=== PATIENT | female | born 1950 | race African-American/Black ===

== ENCOUNTER 2018-01-10 08:53 | Emergency (ER) | payer MEDICAID ==
[~2018-01-10] VITALS: Ht 167.6 cm; Wt 83.9 kg
[2018-01-10 08:27] VITALS: BP 130/88
[~2018-01-10 08:53] MED LIST: AMLODIPINE BES2.5 MG ORAL; Acetaminophen 500mg (ES) tab ORAL ONE; GABAPENTIN300 MG ORAL; HUMALOG100 UNIT/4 SUBQ; HYDROCHLOROTHIA25 MG ORAL; IRON PO; METFORMIN HCL1000 M1 ORAL
[2018-01-10] MEDS ORDERED: Acetaminophen 500mg (ES) tab ORAL ONE (08:59)
[2018-01-10] MEDS ORDERED: IBUPROFEN400 MG ORAL (09:19)
[2018-01-10 09:28] VITALS: BP 123/74
--- NOTE | 2018-01-10 15:04 | Emergency Room Report ---
History of Present Illness General Chief Complaint: Pain Source: Patient Present Illness HPI Patient is a 59-year-old female who presented after bilateral foot pain. The patient presented having bilateral pain to the plantar areas of both feet which had been present for approximately 3 days. Patient gradual onset of symptoms. Patient states she has prior history of chronic pain. She denies any fever. She denies any numbness to both feet. Patient denies recent trauma. Allergies: Coded Allergies: No Known Allergies (Verified , 12/30/07) Patient History Past Medical History: see triage record Reviewed Nursing Documentation: PMH: Agreed; PSxH: Agreed Nursing Documentation-PMH Past Medical History: No History, Except For Hx Diabetes: Yes Review of Systems All Other Systems: negative except mentioned in HPI Physical Exam Vital Signs Date Time Temp Pulse Resp B/P (MAP) Pulse Ox O2 Delivery O2 Flow Rate FiO2 01/10/18 08:27 98.4 88 16 130/88 98 Room Air 98.4 General Appearance: well appearing, no apparent distress, alert, GCS 15 Head: normocephalic, atraumatic ENT: hearing grossly normal, normal voice Neck: full range of motion, supple Respiratory: no respiratory distress, speaking full sentences Cardiovascular #1: edema - trace Gastrointestinal: normal inspection, non tender, soft Musculoskeletal: no calf tenderness Neurologic: normal gait Psychiatric: mood/affect normal Skin: no rash Medical Decision Making Diagnostic Impression: Primary Impression: Foot pain, bilateral ER Course The patient presented for bilateral foot pain. Differential diagnosis included was not limited to neuropathy, arthritis, vascular occlusion, pedal edema, cellulitis among others. Patient has a benign exam and does not appear to require any further imaging or laboratory testing at this time. Patient was given ibuprofen for pain. Patient appears to have some slight pedal edema which is related patient's medication noncompliance. Patient recently been prescribed hydrochlorothiazide but had not yet been taking her medications. The patient is advised to follow up with primary care doctor in 1-2 days. Patient is advised to return if any worsening condition or if any changes in status that are concerning. This report is dictated with [employer] autotransfusionist software which may occasionally lead to discrepancies related to use of this software. Last Vital Signs Date Time Temp Pulse Resp B/P (MAP) Pulse Ox O2 Delivery O2 Flow Rate FiO2 01/10/18 09:28 97.6 83 19 123/74 96 Room Air 98.4 Disposition: HOME, SELF-CARE Condition: Stable Scripts Ibuprofen* (MOTRIN*) 400 Mg Tablet 400 MG ORAL Q8H, #30 TAB 0 Refills Prov: Solomon Ramires 01/10/18 Referrals: [facility],REFERRING (PCP) Patient Instructions: Arthritis Solomon Ramires January 10, 2018 15:04
== END 2018-01-10 09:28 | disposition home or self-care (01) ==
LOC: EDBD 08:53 → EMR 09:19
DX: M79.672 Pain in left foot (principal); M79.671 Pain in right foot; E11.9 Type 2 diabetes mellitus without complications
CPT/HCPCS: 99283

== ENCOUNTER 2018-12-01 09:10 | Emergency (ER) | payer MEDICAID ==
[~2018-12-01] VITALS: Ht 165.1 cm; Wt 77.1 kg
[~2018-12-01 09:10] MED LIST changes: -Acetaminophen 500mg (ES) tab ORAL ONE; +IBUPROFEN400 MG ORAL; +LANTUS SOL100 UNIT/1 SUBQ
[2018-12-01 09:37] VITALS: BP 151/91
--- NOTE | 2018-12-01 09:38 | NUR ---
ED Nurse Note:pt. was BIBA with c/o right lower abd pain since yesterday and BS 356, she is A/Ox4 ambulatory, placed on site monitor VSS, blood sentt to labs
[2018-12-01 09:53] LABS: BASOPHILS % (AUTO) 1.8 % (0.0-2.0); EOSINOPHILS % (AUTO) 1.9 % (0.0-3.0); HEMATOCRIT 47.2 % (37.0-47.0); HEMOGLOBIN 14.7 G/DL (12.0-16.0); LYMPHOCYTES % (AUTO) 37.7 % (20.0-45.0); MEAN CORPUSCULAR VOLUME 82 FL (80-99); MONOCYTES % (AUTO) 6.6 % (1.0-10.0); PLATELET COUNT 220 K/UL (150-450); RED BLOOD COUNT 5.75 M/UL (4.20-5.40); RED CELL DISTRIBUTION WIDTH 14.7 % (11.6-14.8); WHITE BLOOD COUNT 3.9 K/UL (4.8-10.8)
[2018-12-01 09:59] LABS: ANION GAP 11 mmol/L (5-15); BLOOD UREA NITROGEN 12 mg/dL (7-18); CALCIUM 9.4 MG/DL (8.5-10.1); CARBON DIOXIDE 28 MMOL/L (21-32); CHLORIDE 103 MMOL/L (98-107); CREATININE 0.9 MG/DL (0.55-1.30); POTASSIUM 3.7 MMOL/L (3.5-5.1); SODIUM 141 MMOL/L (136-145)
[2018-12-01 10:03] LABS: ALANINE AMINOTRANSFERASE 29 U/L (12-78); ALBUMIN 3.6 G/DL (3.4-5.0); ALBUMIN/GLOBULIN RATIO 0.9 (1.0-2.7); ALKALINE PHOSPHATASE 77 U/L (46-116); ASPARTATE AMINO TRANSFERASE 24 U/L (15-37); BILIRUBIN,TOTAL 0.5 MG/DL (0.2-1.0)
[2018-12-01 10:21] LABS: APPEARANCE,URINE CLEAR; BILIRUBIN, URINE NEGATIVE (NEGATIVE); COLOR,URINE PALE YELLOW; GLUCOSE, URINE (UA) 4+ (NEGATIVE); KETONES,URINE 3+ (NEGATIVE); LEUKOCYTE ESTERASE ,URINE NEGATIVE (NEGATIVE); NITRITE,URINE NEGATIVE (NEGATIVE); PH,URINE 6 (4.5-8.0); PROTEIN,URINE NEGATIVE (NEGATIVE); UROBILINOGEN,URINE NORMAL MG/DL (0.0-1.0)
[2018-12-01 10:52] VITALS: BP 158/88
[2018-12-01 10:53] VITALS: BP 158/88
--- NOTE | 2018-12-01 11:09 | NUR ---
ER DISCHARGE NOTE: Patient is cleared to be discharged per ERMD, pt is aox4, on room air, with stable vital signs. pt was given dc and prescription instructions, pt was able to verbalize understanding, pt id band and iv site removed without complications. pt is able to ambulate with steady gait. pt took all belongings.
--- NOTE | 2018-12-01 12:07 | Emergency Room Report ---
History of Present Illness General Chief Complaint: Abdominal Pain Source: Patient Present Illness HPI Patient presents with complaints of some nonspecific abdominal discomfort initially had reported left lower quadrant discomfort however on further questioning patient essentially reports that she has not taking her insulin Feels that her glucose is elevated Denies any vomiting Denies any diarrhea Denies any flank pain denies any dysuria Denies any recent surgeries denies any fevers or chills Allergies: Coded Allergies: No Known Allergies (Verified , 12/30/07) Patient History Past Medical History: see triage record Pertinent Family History: none Reviewed Nursing Documentation: PMH: Agreed; PSxH: Agreed Nursing Documentation-PMH Hx Hypertension: Yes Hx Diabetes: Yes Review of Systems All Other Systems: negative except mentioned in HPI Physical Exam Vital Signs Date Time Temp Pulse Resp B/P (MAP) Pulse Ox O2 Delivery O2 Flow Rate FiO2 12/01/18 09:02 97.3 89 20 151/91 100 Room Air Sp02 EP Interpretation: reviewed, normal General Appearance: well appearing, no apparent distress Head: normocephalic, atraumatic Eyes: bilateral eye PERRL, bilateral eye EOMI ENT: hearing grossly normal, normal pharynx, TMs + canals normal, uvula midline Neck: full range of motion, supple, no meningismus, no bony tend Respiratory: lungs clear, normal breath sounds, no rhonchi, no respiratory distress, no retraction, no accessory muscle use Cardiovascular #1: normal peripheral pulses, regular rate, rhythm, no edema, no gallop, no JVD, no murmur Gastrointestinal: normal bowel sounds, non tender, soft, no mass, no organomegaly, non-distended, no guarding, no hernia, no pulsatile mass, no rebound Genitourinary: no CVA tenderness Musculoskeletal: normal inspection Neurologic: oriented x3, responsive, process safety management engineer III-XII nml as tested, motor strength/ tone normal, sensory intact Psychiatric: mood/affect normal Skin: normal color, no rash, warm/dry, palpation normal Lymphatic: normal inspection, no adenopathy Medical Decision Making Diagnostic Impression: Primary Impression: hyperglycemia ER Course With the history exam and presentation, multiple differentials considered, including but not limited to appendicitis, gastritis, cholecystitis, diverticulitis Patient's glucose level was elevated on the chemistry Patient had been provided IV hydration on repeat exam resting comfortably without any acute distress blood work does not reveal any obvious acidotic findings patient's repeat Accu-Chek is below 300 And the patient remains comfortable and stable for close outpatient follow-up Labs Test 12/01/18 09:20 12/01/18 09:55 White Blood Count 3.9 K/UL (4.8-10.8) Red Blood Count 5.75 M/UL (4.20-5.40) Hemoglobin 14.7 G/DL (12.0-16.0) Hematocrit 47.2 % (37.0-47.0) Mean Corpuscular Volume 82 FL (80-99) Mean Corpuscular Hemoglobin 25.6 PG (27.0-31.0) Mean Corpuscular Hemoglobin Concent 31.2 G/DL (32.0-36.0) Red Cell Distribution Width 14.7 % (11.6-14.8) Platelet Count 220 K/UL (150-450) Mean Platelet Volume 7.2 FL (6.5-10.1) Neutrophils (%) (Auto) 52.0 % (45.0-75.0) Lymphocytes (%) (Auto) 37.7 % (20.0-45.0) Monocytes (%) (Auto) 6.6 % (1.0-10.0) Eosinophils (%) (Auto) 1.9 % (0.0-3.0) Basophils (%) (Auto) 1.8 % (0.0-2.0) Sodium Level 141 MMOL/L (136-145) Potassium Level 3.7 MMOL/L (3.5-5.1) Chloride Level 103 MMOL/L (98-107) Carbon Dioxide Level 28 MMOL/L (21-32) Anion Gap 11 mmol/L (5-15) Blood Urea Nitrogen 12 mg/dL (7-18) Creatinine 0.9 MG/DL (0.55-1.30) Estimat Glomerular Filtration Rate > 60 mL/min (>60) Glucose Level 342 MG/DL (74-106) Calcium Level 9.4 MG/DL (8.5-10.1) Total Bilirubin 0.5 MG/DL (0.2-1.0) Aspartate Amino Transf (AST/SGOT) 24 U/L (15-37) Alanine Aminotransferase (ALT/SGPT) 29 U/L (12-78) Alkaline Phosphatase 77 U/L (46-116) Total Protein 7.4 G/DL (6.4-8.2) Albumin 3.6 G/DL (3.4-5.0) Globulin 3.8 g/dL Albumin/Globulin Ratio 0.9 (1.0-2.7) Lipase 107 U/L (73-393) Urine Color Pale yellow Urine Appearance Clear Urine pH 6 (4.5-8.0) Urine Specific [place] 1.015 (1.005-1.035) Urine Protein Negative (NEGATIVE) Urine Glucose (UA) 4+ (NEGATIVE) Urine Ketones 3+ (NEGATIVE) Urine Blood Negative (NEGATIVE) Urine Nitrite Negative (NEGATIVE) Urine Bilirubin Negative (NEGATIVE) Urine Urobilinogen Normal MG/DL (0.0-1.0) Urine Leukocyte Esterase Negative (NEGATIVE) Urine Opiates Screen Negative (NEGATIVE) Urine Barbiturates Screen Negative (NEGATIVE) Phencyclidine (PCP) Screen Positive (NEGATIVE) Urine Amphetamines Screen Negative (NEGATIVE) Urine Benzodiazepines Screen Negative (NEGATIVE) Urine Cocaine Screen Negative (NEGATIVE) Urine Marijuana (THC) Screen Negative (NEGATIVE) Rhythm Strip Diag. Results EP Interpretation: yes Rate: 70 Rhythm: NSR, no PVC's, no ectopy Last Vital Signs Date Time Temp Pulse Resp B/P (MAP) Pulse Ox O2 Delivery O2 Flow Rate FiO2 12/01/18 10:53 97.3 61 17 158/88 100 Room Air Status: improved Disposition: HOME, SELF-CARE Condition: Improved Referrals: [facility],REFERRING (PCP) Missy Moreno [facility] Patient Instructions: Hyperglycemia, [id number], Abdominal Pain, Adult Additional Instructions: Patient is provided with the discharge instructions notified to follow up with primary doctor in the next 2-3 days otherwise return to the er with any worsening symptoms. Please note that this report is being documented using [employer] technology. This can lead to erroneous entry secondary to incorrect interpretation by the dictating instrument. Nate Lara DO Dec 01, 2018 12:07
== END 2018-12-01 11:09 | disposition home or self-care (01) ==
LOC: EDBD 09:10 → EMR 09:45
DX: E11.649 Type 2 diabetes mellitus with hypoglycemia without coma (principal); I10 Essential (primary) hypertension; Z91.14 Patient's other noncompliance with medication regimen
CPT/HCPCS: 36415; 80053; 80307; 81003; 82962; 83690; 85025; 96360; 99284

== ENCOUNTER 2020-06-19 13:54 | Inpatient (IN) | payer MEDICAID ==
[~2020-06-19] VITALS: Ht 167.6 cm; Wt 63.1 kg
[2020-06-19] MEDS ORDERED: LR 1000ml 1,000 ML IVLG ONE ×3 (14:00)
[2020-06-19] MEDS ORDERED: cefTRIAXone 1 GM in NS 55 ML IVPB ONE (14:00)
--- NOTE | 2020-06-19 14:15 | NUR ---
ED Nurse Note: pt brought in by ra 826 from home for generalized weakness since ealier today, BP 85/56 at triage. Pt is AOx4, calm and cooperative to care. Pt denies loss of consciousness nor dizziness nor weakness. Pt was hooked to potline monitor, breathing even and unlabored, afebrile on triage. Safety measures in placed will continue monitoring pt.
[2020-06-19 14:33] LABS: BASOPHILS % (AUTO) 3.3 % (0.0-2.0); EOSINOPHILS % (AUTO) 0.4 % (0.0-3.0); HEMATOCRIT 39.5 % (37.0-47.0); HEMOGLOBIN 13.1 G/DL (12.0-16.0); LYMPHOCYTES % (AUTO) 27.7 % (20.0-45.0); MEAN CORPUSCULAR VOLUME 78 FL (80-99); NEUTROPHILS % (AUTO) 60.6 % (45.0-75.0); PLATELET COUNT 189 K/UL (150-450); RED BLOOD COUNT 5.09 M/UL (4.20-5.40); RED CELL DISTRIBUTION WIDTH 13.3 % (11.6-14.8); WHITE BLOOD COUNT 4.7 K/UL (4.8-10.8)
[2020-06-19 15:00] VITALS: BP_SYST 150; BP_SYST 85; BP_DIAS 56; BP_DIAS 70
[2020-06-19 15:03] LABS: ALANINE AMINOTRANSFERASE 41 U/L (12-78); ALBUMIN 3.5 G/DL (3.4-5.0); ALKALINE PHOSPHATASE 83 U/L (46-116); ANION GAP 8 mmol/L (5-15); ASPARTATE AMINO TRANSFERASE 23 U/L (15-37); BILIRUBIN,TOTAL 0.4 MG/DL (0.2-1.0); BLOOD UREA NITROGEN 10 mg/dL (7-18); CARBON DIOXIDE 28 MMOL/L (21-32); CHLORIDE 98 MMOL/L (98-107); CREATINE KINASE 42 U/L (26-308); CREATININE 0.9 MG/DL (0.55-1.30); PHOSPHORUS 3.3 MG/DL (2.5-4.9); POTASSIUM 3.9 MMOL/L (3.5-5.1); SODIUM 134 MMOL/L (136-145)
--- NOTE | 2020-06-19 15:16 | Emergency Room Report ---
History of Present Illness General Chief Complaint: Generalized Weakness Source: Patient (Jaxon Herrera MD) Present Illness HPI 69-year-old female history of diabetes presents with generalized weakness x1 day no chest pain or shortness of breath no fever, but she does endorse a dry cough over the past 24 hours no known aggravating or alleviating factors severity is moderate, constant patient presents for evaluation and treatment (Jaxon Herrera MD) Allergies: Coded Allergies: No Known Allergies (Verified , 09/29/19) COVID-19 Screening Contact w/high risk pt: No Experienced COVID-19 symptoms?: No COVID-19 Testing performed PARTS CATALOGUER: No (Jaxon Herrera MD) Patient History Past Medical History: see triage record Last Menstrual Period: na Reviewed Nursing Documentation: PMH: Agreed; PSxH: Agreed (Jaxon Herrera MD) Nursing Documentation-PMH Past Medical History: No History, Except For Hx Hypertension: Yes Hx Diabetes: Yes (Jaxon Herrera MD) Review of Systems All Other Systems: negative except mentioned in HPI (Jaxon Herrera MD) Physical Exam Vital Signs Date Time Temp Pulse Resp B/P (MAP) Pulse Ox O2 Delivery O2 Flow Rate FiO2 06/19/20 13:55 99.0 116 18 85/56 (66) 100 Room Air Sp02 EP Interpretation: reviewed, normal General Appearance: alert, cachetic Head: normocephalic, atraumatic Eyes: bilateral eye PERRL, bilateral eye EOMI ENT: uvula midline, moist mucus membranes Neck: supple, thyroid normal, supple/symm/no masses Respiratory: lungs clear, no respiratory distress, no retraction, no accessory muscle use Cardiovascular #1: normal peripheral pulses, regular rate, rhythm, no edema, no gallop, no murmur Gastrointestinal: non tender, soft, no guarding, no rebound Musculoskeletal: normal inspection Neurologic: alert, oriented x3 Psychiatric: mood/affect normal Skin: no rash, warm/dry (Jaxon Herrera MD) Procedures Critical Care Time Critical Care Time Given the critical condition in which the patient arrived, the patient was immediately assessed by myself and the nurse, and cardiac monitoring initiated due to the potential for rapid decompensation of the patient's clinical condition. During the course of the patient's stay, I spent a considerable amount of time at the bedside performing serial re-evaluations of the patient's hemodynamic and clinical status because of the recognized potential threat to life or limb in this condition. I then had a chance to review not only all of the available current laboratory and radiographic studies obtained today, but I also reviewed old records available to me at the time. Additionally, any ancillary information available including jira administrator records were reviewed. Sequential vital signs were obtained. Critical Care time of 31 minutes was performed exclusive of billable procedures. (Jaxon Herrera MD) Medical Decision Making Diagnostic Impression: Primary Impression: Weakness Additional Impressions: Hypotension Qualified Codes: I95.9 - Hypotension, unspecified Hyperglycemia ER Course 69-year-old female presents with generalized weakness, hypotension, differential includes sepsis, urinary tract infection, pneumonia Patient's blood pressure improved with fluid resuscitation, patient given ceftriaxone for possible urinary tract infection versus pneumonia. Chest x-ray is negative Troponin negative Plan for admission for generalized weakness Laboratory Tests Test 06/19/20 14:07 White Blood Count 4.7 K/UL (4.8-10.8) L Red Blood Count 5.09 M/UL (4.20-5.40) Hemoglobin 13.1 G/DL (12.0-16.0) Hematocrit 39.5 % (37.0-47.0) Mean Corpuscular Volume 78 FL (80-99) L Mean Corpuscular Hemoglobin 25.7 PG (27.0-31.0) L Mean Corpuscular Hemoglobin Concent 33.0 G/DL (32.0-36.0) Red Cell Distribution Width 13.3 % (11.6-14.8) Platelet Count 189 K/UL (150-450) Mean Platelet Volume 7.6 FL (6.5-10.1) Neutrophils (%) (Auto) 60.6 % (45.0-75.0) Lymphocytes (%) (Auto) 27.7 % (20.0-45.0) Monocytes (%) (Auto) 8.0 % (1.0-10.0) Eosinophils (%) (Auto) 0.4 % (0.0-3.0) Basophils (%) (Auto) 3.3 % (0.0-2.0) H Prothrombin Time 11.1 SEC (9.30-11.50) Prothrombin Time INR 1.0 (0.9-1.1) Activated Partial Thromboplast Time 26 SEC (23-33) Sodium Level 134 MMOL/L (136-145) L Potassium Level 3.9 MMOL/L (3.5-5.1) Chloride Level 98 MMOL/L (98-107) Carbon Dioxide Level 28 MMOL/L (21-32) Anion Gap 8 mmol/L (5-15) Blood Urea Nitrogen 10 mg/dL (7-18) Creatinine 0.9 MG/DL (0.55-1.30) Estimated Glomerular Filtration Rate > 60 mL/min (>60) Glucose Level 490 MG/DL (74-106) H Lactic Acid Level 1.30 mmol/L (0.4-2.0) Calcium Level 9.0 MG/DL (8.5-10.1) Phosphorus Level 3.3 MG/DL (2.5-4.9) Magnesium Level 1.6 MG/DL (1.8-2.4) L Total Bilirubin 0.4 MG/DL (0.2-1.0) Aspartate Amino Transferase (AST) 23 U/L (15-37) Alanine Aminotransferase (ALT) 41 U/L (12-78) Alkaline Phosphatase 83 U/L (46-116) Total Creatine Kinase 42 U/L (26-308) Troponin I 0.001 ng/mL (0.000-0.056) Pro-B-Type Natriuretic Peptide 37 pg/mL (0-125) Total Protein 6.9 G/DL (6.4-8.2) Albumin 3.5 G/DL (3.4-5.0) Globulin 3.4 g/dL Albumin/Globulin Ratio 1.0 (1.0-2.7) Lipase 271 U/L (73-393) Microbiology Date/Time Source Procedure Growth Status 06/19/20 14:07 Nasopharynx SARS-CoV-2 RdRp Gene Assay - Final Complete (Jaxon Herrera MD) ER Course Please see above note. Patient's blood pressure improved after boluses of fluids. Blood sugar is elevated by the lab. Accu-Chek ordered after boluses. Accu-Chek 278 after boluses. Patient tolerating oral intake. Ambulatory. Patient improved but admitted to telemetry. (Evin Winchester MD) EKG Diagnostic Results Troponin ordered: Yes When was troponin ordered?: Jun 19, 2020 - 1358 EKG Time: 14:45 EP Interpretation: NSR, rate 81, QTc 436, no acute ST elevations, normal axis (Jaxon Herrera MD) Rhythm Strip Diag. Results Rhythm Strip Time: 14:48 EP Interpretation: yes Rate: 84 Rhythm: NSR, no PVC's, no ectopy (Jaxon Herrera MD) EP Interpretation: yes Rhythm: NSR, no PVC's, no ectopy (Evin Winchester MD) Chest X-Ray Diagnostic Results Chest X-Ray Diagnostic Results : Chest X-Ray Ordered: Yes # of Views/Limited/Complete: 1 View Indication: Chest Pain EP Interpretation: Yes Interpretation: no consolidation, no effusion, no pneumothorax, no acute c ardiopulmonary disease Impression: No acute disease Electronically Signed by: Jaxon Herrera MD (Jaxon Herrera MD) Chest X-Ray Diagnostic Results : Chest X-Ray Ordered: Yes # of Views/Limited/Complete: 1 View Indication: Other EP Interpretation: Yes Interpretation: no consolidation, no effusion, no pneumothorax Impression: No acute disease Electronically Signed by: Electronically signed by Evin Winchester MD (Evin Winchester MD) Last Vital Signs Date Time Temp Pulse Resp B/P (MAP) Pulse Ox O2 Delivery O2 Flow Rate FiO2 06/19/20 13:55 99.0 116 18 85/56 (66) 100 Room Air (Jaxon Herrera MD) Last Vital Signs Date Time Temp Pulse Resp B/P (MAP) Pulse Ox O2 Delivery O2 Flow Rate FiO2 06/20/20 04:00 75 06/20/20 03:51 98.1 17 126/67 (86) 97 06/19/20 21:40 Room Air Status: improved (Evin Winchester MD) Disposition: ADMITTED INPATIENT Condition: Serious Jaxon Herrera MD Jun 19, 2020 15:16 Evin Winchester MD Jun 19, 2020 15:47
[2020-06-19 15:36] LABS: APPEARANCE,URINE CLEAR; BILIRUBIN, URINE NEGATIVE (NEGATIVE); COLOR,URINE PALE YELLOW; GLUCOSE, URINE (UA) 4+ (NEGATIVE); KETONES,URINE 1+ (NEGATIVE); LEUKOCYTE ESTERASE ,URINE NEGATIVE (NEGATIVE); NITRITE,URINE NEGATIVE (NEGATIVE); PH,URINE 6.5 (4.5-8.0); PROTEIN,URINE NEGATIVE (NEGATIVE); UROBILINOGEN,URINE NORMAL MG/DL (0.0-1.0)
--- NOTE | 2020-06-19 15:43 | NUR ---
ED Nurse Note: ermd aware; offered sandwich to pt
--- NOTE | 2020-06-19 15:43 | NUR ---
ED Nurse Note: Latest BP: 152/70
--- NOTE | 2020-06-19 16:32 | Diagnostic Imaging Report ---
Indication: Shortness of breath Technique: One view of the chest Comparison: 03/11/2010 Findings: Lungs and pleural spaces are clear. Heart size is normal. Better inspiration currently Impression: No acute process
[2020-06-19 17:13] VITALS: BP 126/71
--- NOTE | 2020-06-19 19:13 | NUR ---
ED Nurse Note: hand-off given to CELE Lemon for continuity of care.
[2020-06-19 19:30] VITALS: BP 132/70
[2020-06-19] MEDS ORDERED: Zolpidem 5mg tab ORAL PRN (20:45)
[2020-06-19] MEDS ORDERED: Milk of Magnesia 30ml Ud ORAL PRN (20:45)
--- NOTE | 2020-06-19 21:00 | NUR ---
ED Nurse Note: Pt resting in bed with eyesv open, ptv denies pain at this time, fluids infusing per order, no signs of distress. Pt given sandwhich and juice. will continue to monitor
[2020-06-19 21:30] VITALS: BP 142/78
--- NOTE | 2020-06-19 21:40 | NUR ---
TRANSFER TO FLOOR: Patient transferred to as ordered, per Dr Carver. Report given to CELE Thompson . Belongings and medications given to . Family and or S/O informed of transfer.
--- NOTE | 2020-06-19 21:45 | NUR ---
NURSE NOTES: Patient received from Xochilt OAKLEY. Brought to floor via [facility]. Patient was able to ambulate from gurney to bed. Placed on telemetry monitor and yellow gown. Patient is alert and oriented x4 Belongings list checked. Vital signs stable upon arrival. Bed in lowest position and locked. IV site patent and intact on Left AC 20G SL. Received orders from Attending MD verified and carried out. Call light and bedside table within reach. WIll continue plan of care.
[2020-06-19] MEDS: Aspirin Baby 81mg ORAL SCH (22:06)
[2020-06-19] MEDS: NovoLOG Insulin Flexpen SUBQ SCH (22:09)
--- NOTE | 2020-06-19 22:45 | NUR ---
NURSE NOTES: Patient complained of 7/10 stomach pain and states that she takeds Tylenol #3. Called MD and gave order verified and carried out.
[2020-06-19] MEDS: Tylenol #3 tab (300mg/30mg) ORAL PRN (22:53)
[2020-06-20] VITALS: BP 150/81
[2020-06-20] MEDS: Tylenol #3 tab (300mg/30mg) ORAL PRN ×4 (03:13→23:34)
[2020-06-20 03:51] VITALS: BP 126/67
[2020-06-20] MEDS: NovoLOG Insulin Flexpen SUBQ SCH ×5 (05:34→20:50)
[2020-06-20 05:45] LABS: ANION GAP 5 mmol/L (5-15); BLOOD UREA NITROGEN 10 mg/dL (7-18); CALCIUM 8.4 MG/DL (8.5-10.1); CARBON DIOXIDE 29 MMOL/L (21-32); CHLORIDE 104 MMOL/L (98-107); CHOLESTEROL 162 MG/DL (< 200); CREATININE 0.8 MG/DL (0.55-1.30); HDL CHOLESTEROL 47 MG/DL (40-60); POTASSIUM 3.5 MMOL/L (3.5-5.1); SODIUM 138 MMOL/L (136-145); TRIGLYCERIDES 56 MG/DL (30-150)
--- NOTE | 2020-06-20 07:27 | NUR ---
NURSE HAND-OFF REPORT: Important Events on Shift:[Admission] Patient Status: [Stable] Diet: [CCHO Med] Pending Orders: [] Pending Results/Labs:[] Pending MD notification:[] Latest Vital Signs: Temperature 98.1 , Pulse 75 , B/P 126 /67 , Respiratory Rate 17 , O2 SAT 97 , Room Air, O2 Flow Rate . Vital Sign Comment: [] EKG Rhythm: Sinus Rhythm Rhythm change?: N MD Notified?: - MD Response: Latest [place] Fall Score: 35 Fall Risk: Medium Risk Safety Measures: Call light Within Reach, Bed Alarm Zone 1, Side Rails Side Rails x3, Bed position Low and Locked. Fall Precautions: Yellow Socks Yellow Gown Door Sign Patient Fall Education Report given to [Carlee].
[2020-06-20 08:00] VITALS: BP 125/71
[2020-06-20] MEDS: Aspirin Baby 81mg ORAL SCH (09:25)
--- NOTE | 2020-06-20 10:20 | History & Physical ---
History and Physical History & Physicial HP dictated # [id number] Xavi Carver MD Jun 20, 2020 10:20
[2020-06-20 12:00] VITALS: BP 127/74
--- NOTE | 2020-06-20 12:00 | NUR ---
NURSE NOTES: notified doctor Wen pt stated pt uses PCP at home. Doctor ordered drug urine test. waiting for orders.
--- NOTE | 2020-06-20 12:15 | History and Physical Report ---
DATE OF ADMISSION: 06/19/2020 CHIEF COMPLAINT: Generalized weakness. HISTORY OF PRESENT ILLNESS: This is a 69-year-old female with history of diabetes. She has been feeling weak for a week or so. Apparently, she had also dry cough reported to the ER, which she denies it now. In the emergency room, she was found to have hypotension, blood pressure was 85/56. She was afebrile. There was concern that the patient may be septic. Her blood sugar was also elevated and she was admitted for further care. PAST MEDICAL HISTORY: The patient has a history of diabetes and hypertension. MEDICATIONS: Reviewed in EMR. SOCIAL HISTORY: No history of smoking or alcohol abuse. The patient lives at home. ALLERGIES: No known drug allergies. REVIEW OF SYSTEMS: Noncontributory except above. PHYSICAL EXAMINATION: GENERAL: The patient is an elderly female, in no acute distress. VITAL SIGNS: Blood pressure 125/71, pulse 82, temperature 96.8, respirations 18. HEENT: [place] conjunctivae. Anicteric sclerae. NECK: Supple. LUNGS: Clear to auscultation. HEART: S1, S2 without murmurs or rubs. ABDOMEN: Soft, nontender. EXTREMITIES: No cyanosis or edema. LABORATORY FINDINGS: The CBC shows WBC of 4700, hematocrit 39.5, hemoglobin 13.1, and platelets 189,000. Chemistry panel shows serum sodium 138, potassium 3.5, chloride 104, carbon dioxide 29, BUN 10, creatinine 0.8. Blood sugar is 313. LDL is 109, HDL is 47. UA shows no protein, 4+ glucose, 1+ ketones. ASSESSMENT: This is a 69-year-old female who is admitted with weakness and hypotension. There was a concern about sepsis, but so far there is no source of infection. She had elevated blood sugar and she very likely had volume depletion as a result of uncontrolled diabetes. PLAN: The patient will be given IV fluids. She was started on empiric ceftriaxone. She will be seen by endocrine specification consultant, Dr. Puga. Labs will be followed and further adjustment will be made in the patient's regimen. Xavi Carver M.D. DR: MARGARET JOB#: [id number] CC:
[2020-06-20] MEDS: cefTRIAXone 1 GM in D5W 55 ML IVPB SCH (12:28)
--- NOTE | 2020-06-20 14:45 | NUR ---
PT Note PT david completed, treatment initiated. Patient is cooperative; has muscle weakness and decreased postural stability, making her at a risk for falls. Patient needs physical therapy to increase her muscle strength and balance to improve her safety in mobility and gait. Addendum: 06/20/20 at 1446 by MIGEL BATISTA PT Amended: Links added.
[2020-06-20 16:00] VITALS: BP 130/76
--- NOTE | 2020-06-20 16:21 | NUR ---
NURSE NOTES: pt in bed awake AOx3-4. Both Iv's intact and patent. Pt on pvc monitor no signs of cardiac or respiratory distress. Bed locked and in lowest position, call light within reach. Pt able to walk with assist to the restroom. Will continuer to monitor pt.
--- NOTE | 2020-06-20 16:30 | Consultation ---
DATE OF CONSULTATION: 06/20/2020 ENDOCRINOLOGY CONSULTATION CONSULTING PHYSICIAN: Alan Puga MD. REFERRING PHYSICIAN: Xavi Carver MD. REASON FOR CONSULTATION: Management of uncontrolled diabetes. HISTORY OF PRESENT ILLNESS: The patient is a 69-year-old female, very pleasant with history of diabetes on combination of insulin and Lantus as an outpatient and presented to the hospital with hypotension, blood pressure was 85/56 and a concern was the patient might be septic. Also, the glucose was elevated. PAST MEDICAL HISTORY: 1. Diabetes. 2. Hypertension. MEDICATIONS: Reviewed and reconciled. SOCIAL HISTORY: No smoking, alcohol or drug use. She lives at home. ALLERGIES TO MEDICATIONS: None. FAMILY HISTORY: Noncontributory. REVIEW OF SYSTEMS: A 12-point review of systems was performed, pertinent positives and negatives mentioned in the present illness. LABORATORY VALUES: Hemoglobin A1c of 13.5. Lactic acid is normal. Sodium 138, potassium 3.5, chloride 104, bicarb 29, BUN 10, creatinine 0.8. TSH of 0.7. LDL of 109. PHYSICAL EXAMINATION: GENERAL: She is awake and alert. VITAL SIGNS: Blood pressure is 125/71, heart rate 82, respiratory rate 18, temperature 96.8. HEENT: Pupils are equal and reactive to light. Sclerae are anicteric. NECK: No JVD. No thyromegaly or bruits. LUNGS: Clear. HEART: Regular rate and rhythm. ABDOMEN: Positive bowel sounds. Soft. EXTREMITIES: No clubbing, cyanosis or edema. DIAGNOSES: 1. Diabetes, out of control. 2. Hypotension. PLAN: 1. Start Levemir 24 units daily, first dose now. 2. Start NovoLog 8 units before each meal and dinner. 3. NovoLog sliding scale before meals and at bedtime is in order. 4. Hypoglycemia protocol is in order. 5. Start metformin 500 mg t.i.d. 6. Further adjustment according to the blood glucose values. Thank you, Dr. Carver, for the courtesy of this consultation. Alan Puga M.D. : CELE/HALIE JOB#: [id number] CC: MARIA ELENA
[2020-06-20] MEDS: metFORMIN 500mg tab ORAL SCH (16:57)
[2020-06-20] MEDS: Levemir Flexpen SUBQ SCH (16:59)
--- NOTE | 2020-06-20 19:29 | NUR ---
NURSE HAND-OFF REPORT: Important Events on Shift:pt reported pain in the abdomen mg and Ca are low reported to Dr. Carver, he ordered labs and 2 bags of mg Patient Status: full Diet: CCHo Pending Orders: labs Pending Results/Labs: Pending MD notification: Latest Vital Signs: Temperature 97.0 , Pulse 80 , B/P 130 /76 , Respiratory Rate 18 , O2 SAT 97 , Room Air, O2 Flow Rate . Vital Sign Comment: EKG Rhythm: Atrial Fibrillation Rhythm change?: N MD Notified?: - MD Response: Latest Dunne Fall Score: 35 Fall Risk: Medium Risk Safety Measures: Call light Within Reach, Bed Alarm Zone 2, Side Rails Side Rails x2, Bed position Low and Locked. Fall Precautions: y Yellow Socks y Yellow Gown y Patient Fall Education y Report given to Omaira/RN.
--- NOTE | 2020-06-20 19:35 | NUR ---
NURSE NOTES: Received report from CELE Bejarano. pt in bed awake, alert/oriented 4, able to make needs known. No resp distress noted. cardiac monitor in place. Iv on left forearm 22g infusing NS at 75cc/hr no s/s infiltration noted. Bed in low position & locked. Bed rails up x3. Bed alarm on, call light with in reach. Explained to pt to us call light when getting in & out of bed.
--- NOTE | 2020-06-20 19:59 | Cardiology Report ---
APPROVED REPORT EKG Measurement Heart [id number] <Conclusion> Normal sinus rhythm Normal ECG
[2020-06-20 20:00] VITALS: BP 132/77
[2020-06-21] VITALS: BP 128/65
[2020-06-21 04:00] VITALS: BP_SYST 122; BP_SYST 138; BP_DIAS 66; BP_DIAS 69
[2020-06-21] MEDS: metFORMIN 500mg tab ORAL SCH ×2 (06:33→11:55)
[2020-06-21] MEDS: Tylenol #3 tab (300mg/30mg) ORAL PRN ×2 (06:34→15:54)
[2020-06-21] MEDS: NovoLOG Insulin Flexpen SUBQ SCH ×4 (06:35→11:59)
--- NOTE | 2020-06-21 07:56 | NUR ---
NURSE NOTES: pt in bed eating breakfast. AOx3-4. on shelter monitor no signs of cardiac or respiratory distress. Bed is locked and in lowest position. Call light within reach. pt has no complains of pain at this time. Will continuer to monitor
[2020-06-21 08:00] VITALS: BP 133/69
[2020-06-21 08:29] LABS: ANION GAP 6 mmol/L (5-15); BLOOD UREA NITROGEN 10 mg/dL (7-18); CALCIUM 8.1 MG/DL (8.5-10.1); CARBON DIOXIDE 27 MMOL/L (21-32); CHLORIDE 106 MMOL/L (98-107); CREATININE 0.6 MG/DL (0.55-1.30); POTASSIUM 3.2 MMOL/L (3.5-5.1); SODIUM 139 MMOL/L (136-145)
[2020-06-21] MEDS: Levemir Flexpen SUBQ SCH (08:36)
[2020-06-21] MEDS: Aspirin Baby 81mg ORAL SCH (08:36)
[2020-06-21] MEDS ORDERED: NOVOLOG100 UNITS1 SUBQ (09:32)
[2020-06-21] MEDS ORDERED: LIPITOR10 MG ORAL (09:32)
[2020-06-21] MEDS ORDERED: LEVEMIR FL100 UNIT/1 SUBQ (09:32)
[2020-06-21] MEDS ORDERED: GLUCOPHAGE500 MG ORAL (09:32)
--- NOTE | 2020-06-21 11:47 | General Progress Note ---
Subjective Allergies: Coded Allergies: No Known Allergies (Verified , 09/29/19) All Systems: reviewed and negative except above Subjective events noted interval notes reviewed glucose values improved Item Value Date Time Bedside Blood Glucose 179 mg/dl H 06/21/20 0836 Bedside Blood Glucose 179 mg/dl H 06/21/20 0636 Bedside Blood Glucose 154 mg/dl H 06/20/20 2100 Bedside Blood Glucose 313 mg/dl H 06/20/20 1702 Bedside Blood Glucose 392 mg/dl H 06/20/20 1230 Bedside Blood Glucose 278 mg/dl H 06/20/20 0534 Objective Last 24 Hour Vital Signs Date Time Temp Pulse Resp B/P (MAP) Pulse Ox O2 Delivery O2 Flow Rate FiO2 06/21/20 04:00 98.1 80 20 122/66 (84) 97 06/21/20 04:00 73 06/21/20 00:00 74 06/21/20 00:00 98.0 88 20 128/65 (86) 96 06/20/20 21:00 Room Air 06/20/20 20:00 82 06/20/20 20:00 98.6 78 18 132/77 (95) 98 06/20/20 16:00 97.0 82 18 130/76 (94) 97 06/20/20 16:00 80 06/20/20 12:00 83 06/20/20 12:00 96.9 84 20 127/74 (91) 95 Intake and Output 06/20/20 06/21/20 19:00 07:00 Intake Total 480 ml 350 ml Balance 480 ml 350 ml Intake Oral 480 ml 350 ml # Voids 3 3 Laboratory Tests 06/20/20 12:50: Urine Opiates Screen PositiveH, Urine Barbiturates Screen Negative, Phencyclidine (PCP) Screen PositiveH, Urine Amphetamines Screen Negative, Urine Benzodiazepines Screen Negative, Urine Cocaine Screen Negative, Urine Marijuana (THC) Screen Negative 06/20/20 14:51: POC Whole Blood Glucose [Pending] 06/21/20 06:12: POC Whole Blood Glucose 179H 06/21/20 06:32: Sodium Level 139, Potassium Level 3.2L, Chloride Level 106, Carbon Dioxide Level 27, Anion Gap 6, Blood Urea Nitrogen 10, Creatinine 0.6, Estimat Glomerular Filtration Rate > 60, Glucose Level 172#H, Calcium Level 8.1L, Magnesium Level 1.6L 10/18/20 11:12: POC Whole Blood Glucose [Pending] Height (Feet): 5 Height (Inches): 6.00 Weight (Pounds): 100 General Appearance: no apparent distress Neck: normal alignment Cardiovascular: normal rate Respiratory/Chest: lungs clear Abdomen: normal bowel sounds Pelvis: normal external exam Objective Current Medications Medications (Trade) Dose Ordered Sig/Carson Route PRN Reason Start Time Stop Time Status Last Admin Dose Admin Acetaminophen/ Codeine Phosphate (Tylenol #3) 1 tab Q4H PRN ORAL Moderate Pain (Pain Scale 4-6) 06/19/20 22:45 06/26/20 22:44 06/21/20 06:34 Aspirin (ASA) 81 mg DAILY ORAL 06/19/20 20:45 08/03/20 20:44 06/21/20 08:36 Atorvastatin Calcium (Lipitor) 10 mg BEDTIME ORAL 06/20/20 21:00 09/18/20 20:59 06/20/20 20:47 Ceftriaxone Sodium 1 gm/ Dextrose 55 ml @ 110 mls/hr Q24H IVPB 06/20/20 13:00 06/27/20 12:59 06/20/20 12:28 Dextrose (Dextrose 50%) 25 ml Q30M PRN IV Hypoglycemia 06/20/20 14:30 09/18/20 14:29 Dextrose (Dextrose 50%) 50 ml Q30M PRN IV Hypoglycemia 06/20/20 14:30 09/18/20 14:29 Insulin Aspart (NovoLOG) BEFORE MEALS AND HS SUBQ 06/19/20 21:00 09/17/20 20:59 06/21/20 06:35 Insulin Aspart (NovoLOG) 8 units NOVOTIAC SUBQ 06/20/20 16:50 09/18/20 16:49 06/21/20 06:36 Insulin Detemir (Levemir) 24 units DAILY SUBQ 06/20/20 16:00 09/18/20 15:59 06/21/20 08:36 Magnesium Hydroxide (Mom) 30 ml HSPRN PRN ORAL Constipation 06/19/20 20:45 07/19/20 20:44 Magnesium Sulfate 100 ml @ 100 mls/hr Q1H IVPB 06/21/20 09:30 06/21/20 12:29 06/21/20 10:14 Metformin HCl (Glucophage) 500 mg TIAC ORAL 06/20/20 16:30 07/20/20 16:29 06/21/20 06:33 Sodium Chloride 1,000 ml @ 75 mls/hr [id number] IVLG 06/19/20 21:45 07/19/20 21:44 06/21/20 00:24 Zolpidem Tartrate (Ambien) 5 mg DAILYPRN PRN ORAL Insomnia 06/19/20 20:45 06/26/20 20:44 Assessment/Plan Problem List: (1) Hyperglycemia ICD Codes: R73.9 - Hyperglycemia, unspecified SNOMED: 68874679 (2) Weakness ICD Codes: R53.1 - Weakness SNOMED: 96925099 (3) Hypotension ICD Codes: I95.9 - Hypotension, unspecified SNOMED: 03710864 Qualifiers: Qualified Codes: I95.9 - Hypotension, unspecified (4) Foot pain, bilateral ICD Codes: M79.671 - Pain in right foot; M79.672 - Pain in left foot SNOMED: 10710419 Assessment/Plan: continue Levemir 24 units daily continue Novolog 8 units ac tid + SSI continue Metformin 500 mg tid Alan Puga MD Jun 21, 2020 11:47
[2020-06-21 12:00] VITALS: BP 146/82
[2020-06-21] MEDS: cefTRIAXone 1 GM in D5W 55 ML IVPB SCH (13:14)
--- NOTE | 2020-06-21 14:53 | NUR ---
CASE MANAGEMENT: Faxed clinical info (face sheet /H&P/ ER MD notes/ cx report 06-20 and progress notes 06-21/ lab and imaging reports inc admit order) to [facility] @ / attn: AWILDA ORELLANA with T#[id number].
--- NOTE | 2020-06-21 16:30 | NUR ---
NURSE NOTES: pt DC home in stable condition via taxi. pt left with her . explained all DC meds to pt and . pt was given a prescription for meds that will be filled tonight. Pt and understood DC instructions and verbalized understanding. Both IV lines were DC pt not bleeding at this moment, site was covered with 4x4. panel monitor was taken off from pt. pt will follow up with PCP next week.
--- NOTE | 2020-06-22 12:44 | Discharge Summary ---
Discharge Summary Discharge Summary _ DATE OF ADMISSION: 06/19/2020 DATE OF DISCHARGE: 06/21/2020 DISCHARGED BY: Xavi Carver REASON FOR ADMISSION: 69 years old female with past medical history of hypertension and diabetes mellitus, presented due to generalized weakness. She also endorsed dry cough for the past 24 hours. No chest pain, no shortness of breath. No fever or chills.. Upon evaluation she was hypotensive with blood pressure 85/56 and tachycardic with heart rate 116. Laboratory work-up revealed no leukocytosis, stable hemoglobin and hematocrit. Lactic acid 1.3. BUN 10, creatinine 0.9. Sodium 134, potassium 3.9. Glucose 490, anion gap within normal range. Needing 1.6. Stable LFT. Troponin negative, proBNP 37. EKG revealed sinus rhythm no acute ischemic changes. COVID-19 was negative. Patient subsequently admitted for further management. 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 Puga [facility] COURSE: Patient admitted to monitored floor At home patient was on hydrochlorothiazide , which was stopped. Patient started on IV hydration and empiric antibiotic. Blood culture came back negative. No fever, no leukocytosis. Renal parameters and electrolytes were closely monitored. Potassium and magnesium were replaced. Blood sugar was managed as per spice grinder recommendations with long-acting insulin, short acting, insulin before meals and sliding scale of insulin as needed. Metformin was continued. Hemoglobin A1c 13.5, clearly not at goal. Patient was provided with diabetic teaching and diabetic diet Patient was encouraged regular follow-up with her primary care provider to bring hemoglobin A1c down. Blood sugar improved while in the hospital. Lipid panel revealed elevated LDL. Patient started on statin. Patient educated on low-fat low-cholesterol diet. TSH within normal limits. Urine toxicology screen was positive for PCP. Patient was counseled on abstinence from illicit street drugs Patient clinically stabilized, blood pressure improved. Patient was ready for discharge home. FINAL DIAGNOSES: Hypotension PCP use Generalized weakness Diabetes mellitus [id number] ( [id number]) DISCHARGE MEDICATIONS: See Medication Reconciliation list. DISCHARGE INSTRUCTIONS: Patient was discharged home. Follow-up with primary care provider in 1 week. I have been assigned to dictate discharge summary for this account. I was not involved in the patient's management. Radha Wallace NP Jun 22, 2020 12:44
--- NOTE | 2020-06-23 12:41 | NUR ---
INSURANCE DC SUMMARY FAXED TO [phone]
== END 2020-06-21 16:35 | disposition home or self-care (01) | DRG 420 ==
LOC: EDUNIT# 13:54 → EDBD 13:54 → EMR 15:58 → 2E 17:19 → EDBEDREQ 20:13
DX: E11.65 Type 2 diabetes mellitus with hyperglycemia (principal); I95.9 Hypotension, unspecified; F16.10 Hallucinogen abuse, uncomplicated; R53.1 Weakness; M79.672 Pain in left foot; M79.671 Pain in right foot
CPT/HCPCS: 36415; 71045; 80048; 80053; 80061; 80307; 81003; 82550; 82962; 83036; 83605; 83690; 83735; 83880; 84100; 84443; 84484; 85025; 85610; 85730; 87040; 93005; 96365; 96375; 99291; J1815; J7030; J8499; S5561; U0002